=== PATIENT | female | born 1970 | race Caucasian/White ===

== ENCOUNTER 2016-11-11 10:07 | Emergency (ER) | payer OTHER ==
[~2016-11-11] VITALS: Ht 167.6 cm; Wt 100.0 kg
[~2016-11-11 10:07] MED LIST: BACTRIM DS1 TAB PO; LORTAB 10 PO; MEDDOSEPAK PO; NAPROSYN500 MG PO; NO; NO HOME MEDS; ULTRAM50 MG OR; ULTRAM50 MG PO; ZITHROMAX250 MG OR; ZITHROMAX250 MG PO
[2016-11-11 10:30] LABS: URINE BILIRUBIN - DIPSTICK NEGATIVE (NEGATIVE); URINE BLOOD DIPSTICK NEGATIVE (NEGATIVE); URINE CLARITY CLEAR; URINE COLOR YELLOW; URINE GLUCOSE - DIPSTICK NEGATIVE (NEGATIVE); URINE KETONE NEGATIVE (NEGATIVE); URINE LEUK ESTERASE NEGATIVE (NEGATIVE); URINE NITRITE - DIPSTICK NEGATIVE (Negative); URINE PROTEIN - DIPSTICK NEGATIVE (NEG-TRACE); URINE SPECIFIC GRAVITY 1.025; URINE UROBILINOGEN - DIPSTICK 0.2 E.U./dL (0.2)
[2016-11-11] MEDS ORDERED: FLEXERIL PO (12:12)
[2016-11-11] MEDS ORDERED: PERCOCET 5/325M1 TAB PO (12:12)
[2016-11-11 12:29] VITALS: BP 136/86
== END 2016-11-11 12:29 | disposition home or self-care (01) | DRG 563 ==
LOC: ED 10:07
PROVIDERS: Emergency Medicine
DX: S39.012A Strain of muscle, fascia and tendon of lower back, initial encounter (principal); M54.30 Sciatica, unspecified side; X58.XXXA Exposure to other specified factors, initial encounter

== ENCOUNTER 2017-03-23 08:08 | Emergency (ER) | payer OTHER ==
[~2017-03-23] VITALS: Ht 167.6 cm; Wt 120.0 kg
[~2017-03-23 08:08] MED LIST changes: +FLEXERIL PO; +PERCOCET 5/325M1 TAB PO
[2017-03-23] MEDS ORDERED: MOTRIN800 MG PO (09:26)
[2017-03-23 09:31] VITALS: BP 129/66
== END 2017-03-23 09:31 | disposition home or self-care (01) | DRG 563 ==
LOC: ED 08:08
DX: S56.911A Strain of unspecified muscles, fascia and tendons at forearm level, right arm, initial encounter (principal); X50.3XXA Overexertion from repetitive movements, initial encounter

== ENCOUNTER 2017-05-09 07:49 | Emergency (ER) | payer SELFPAY ==
[~2017-05-09] VITALS: Ht 167.6 cm; Wt 110.0 kg
[~2017-05-09 07:49] MED LIST changes: +MOTRIN800 MG PO
[2017-05-09] MEDS ORDERED: TRAMADOL HYDROC50 MG PO (08:16)
[2017-05-09] MEDS ORDERED: MOTRIN800 MG PO (08:16)
[2017-05-09 08:21] VITALS: BP 128/88
== END 2017-05-09 08:30 | disposition home or self-care (01) | DRG 556 ==
LOC: ED 07:49
DX: M25.561 Pain in right knee (principal); M17.11 Unilateral primary osteoarthritis, right knee; M25.461 Effusion, right knee

== ENCOUNTER 2017-11-10 08:08 | Emergency (ER) | payer MEDICAID ==
[~2017-11-10] VITALS: Ht 167.6 cm; Wt 135.3 kg
[~2017-11-10 08:08] MED LIST changes: +TRAMADOL HYDROC50 MG PO
[2017-11-10 08:44] LABS: HEMATOCRIT 43.8 % (37.0-47.0); HEMOGLOBIN 14.4 g/dl (12.0-16.0); IMMATURE GRANULOCYTES 0.5 % (0.0-1.0); MEAN CELL VOLUME 91.4 fL CALC (80.0-100.0); MEAN CORPUSCULAR HGB 30.1 pG CALC (26.0-32.0); MEAN CORPUSCULAR HGB CONC 32.9 g/L CALC (32.0-36.0); NEUT# 5.61 thou/uL (2.00-7.15); RED BLOOD COUNT 4.79 mill/uL (4.20-5.60); RED CELL DISTRI WIDTH 13.2 % (11.5-15.5)
[2017-11-10 08:48] LABS: URINE BILIRUBIN - DIPSTICK NEGATIVE (NEGATIVE); URINE BLOOD DIPSTICK NEGATIVE (NEGATIVE); URINE COLOR YELLOW; URINE GLUCOSE - DIPSTICK NEGATIVE (NEGATIVE); URINE KETONE NEGATIVE (NEGATIVE); URINE LEUK ESTERASE NEGATIVE (NEGATIVE); URINE NITRITE - DIPSTICK NEGATIVE (Negative); URINE PROTEIN - DIPSTICK NEGATIVE (NEG-TRACE); URINE UROBILINOGEN - DIPSTICK 0.2 E.U./dL (0.2)
[2017-11-10 09:02] LABS: ALBUMIN 3.9 g/dL (3.2-5.0); ALKALINE PHOSPHATASE 88 u/l (38-126); ANION GAP 15 (6-22 (CALC)); BILIRUBIN, TOTAL 0.5 mg/dL (0.0-1.4); BUN 11 mg/dL (7-17); BUN/CREATININE RATIO 14 (12-20 (CALC)); CARBON DIOXIDE 26 mmol/l (22-30); CHLORIDE 104 mmol/l (95-108); CREATININE 0.8 mg/dL (0.5-1.0); GFR > 60 ML/MIN (>=60 (CALC)); GFR FOR AFR.AMER. > 60 ML/MIN (>=60 (CALC)); POTASSIUM 3.7 mmol/l (3.5-5.1); SGOT/AST 43 u/l (14-36); SGPT/ALT 62 u/l (9-52); SODIUM 141 mmol/l (137-146); TOTAL PROTEIN 7.4 g/dL (6.3-8.2)
[2017-11-10 09:13] LABS: MYOGLOBIN 41 ng/mL (0 - 62)
[2017-11-10] MEDS ORDERED: HYDROCHLOROTH12.5 MG PO (09:43)
[2017-11-10] MEDS ORDERED: OXYBUTYNIN5 M1 PO (09:43)
[2017-11-10] MEDS ORDERED: LISINOPRIL2.5 MG PO (09:44)
[2017-11-10] MEDS ORDERED: TOPIRAMATE25 MG PO (09:44)
[2017-11-10] MEDS ORDERED: METFORMIN500 MG PO (09:44)
[2017-11-10 10:12] LABS: URINE CLARITY CLEAR
[2017-11-10 10:47] VITALS: BP 144/58
== END 2017-11-10 11:03 | disposition home or self-care (01) | DRG 103 ==
LOC: ED 08:08
PROVIDERS: Emergency Medicine
DX: R51 Headache (principal); R42 Dizziness and giddiness; E11.9 Type 2 diabetes mellitus without complications; I10 Essential (primary) hypertension

== ENCOUNTER 2018-06-07 17:13 | Emergency (ER) | payer SELFPAY ==
[~2018-06-07] VITALS: Ht 167.6 cm; Wt 95.0 kg
[~2018-06-07 17:13] MED LIST changes: +HYDROCHLOROTH12.5 MG PO; +LISINOPRIL2.5 MG PO; +METFORMIN500 MG PO; +OXYBUTYNIN5 M1 PO; +TOPIRAMATE25 MG PO
[2018-06-07] MEDS ORDERED: (None)3.5 GM OU (19:30)
[2018-06-07] MEDS ORDERED: GENTAMICIN15 ML/BTL OU (19:30)
[2018-06-07 19:31] VITALS: BP 155/78
== END 2018-06-07 19:35 | disposition home or self-care (01) | DRG 125 ==
LOC: ED 17:13
DX: H10.9 Unspecified conjunctivitis (principal); I10 Essential (primary) hypertension; E11.9 Type 2 diabetes mellitus without complications

== ENCOUNTER 2018-08-20 07:58 | Emergency (ER) | payer SELFPAY ==
[~2018-08-20] VITALS: Ht 167.6 cm; Wt 131.4 kg
[~2018-08-20 07:58] MED LIST changes: +(None)3.5 GM OU; +GENTAMICIN15 ML/BTL OU
[2018-08-20] MEDS ORDERED: ADVAIR DISK1 IN (08:12)
[2018-08-20] MEDS ORDERED: FLOVENT HF220 MCG/AC IN (08:12)
[2018-08-20] MEDS ORDERED: CEPHALEXIN500 M1 PO (09:22)
[2018-08-20] MEDS ORDERED: ROBITUSSIN AC10 ML PO (09:22)
[2018-08-20] MEDS ORDERED: FLONASE AL50 MCG/ACT (09:24)
[2018-08-20 09:27] VITALS: BP 127/66
== END 2018-08-20 09:33 | disposition home or self-care (01) | DRG 153 ==
LOC: ED 07:58
DX: J06.9 Acute upper respiratory infection, unspecified (principal); J32.9 Chronic sinusitis, unspecified; I10 Essential (primary) hypertension; E11.9 Type 2 diabetes mellitus without complications; J45.909 Unspecified asthma, uncomplicated

== ENCOUNTER 2020-12-12 23:23 | Emergency (ER) | payer BC ==
[~2020-12-12] VITALS: Ht 167.6 cm; Wt 114.0 kg
[~2020-12-12 23:23] MED LIST changes: +ADVAIR DISK1 IN; +CEPHALEXIN500 M1 PO; +FLONASE AL50 MCG/ACT; +FLOVENT HF220 MCG/AC IN; +ROBITUSSIN AC10 ML PO
[2020-12-13 00:38] LABS: URINE BILIRUBIN - DIPSTICK NEGATIVE (NEGATIVE); URINE BLOOD DIPSTICK NEGATIVE (NEGATIVE); URINE COLOR YELLOW; URINE GLUCOSE - DIPSTICK >=1000 mg/dL (NEGATIVE); URINE KETONE NEGATIVE (NEGATIVE); URINE LEUK ESTERASE NEGATIVE (NEGATIVE); URINE PROTEIN - DIPSTICK NEGATIVE (NEG-TRACE); URINE SPECIFIC GRAVITY 1.015; URINE UROBILINOGEN - DIPSTICK 0.2 E.U./dL (0.2)
[2020-12-13 00:40] LABS: HEMATOCRIT 43.1 % (37.0-47.0); HEMOGLOBIN 14.7 g/dl (12.0-16.0); IMMATURE GRANULOCYTES 0.1 % (0.0-5.0); MEAN CELL VOLUME 87.6 fL CALC (80.0-100.0); MEAN CORPUSCULAR HGB 29.9 pG CALC (26.0-32.0); MEAN CORPUSCULAR HGB CONC 34.1 g/dL CAL (32.0-36.0); NEUT# 4.24 thou/uL (2.00-7.15); RED BLOOD COUNT 4.92 mill/uL (4.20-5.60); RED CELL DISTRI WIDTH 12.5 % (11.5-15.5)
[2020-12-13 00:41] LABS: URINE NITRITE - DIPSTICK NEGATIVE (Negative)
[2020-12-13 00:50] LABS: ALBUMIN 4.1 g/dL (3.2-5.0); AMYLASE 53 u/l (30-110); ANION GAP 14 (6-22 (CALC)); BILIRUBIN, TOTAL 0.5 mg/dL (0.0-1.4); BUN 10 mg/dL (7-17); BUN/CREATININE RATIO 14 (12-20 (CALC)); CARBON DIOXIDE 25 mmol/l (22-30); CHLORIDE 101 mmol/l (95-108); CREATININE 0.7 mg/dL (0.5-1.0); GFR > 60 ML/MIN (>=60 (CALC)); GFR FOR AFR.AMER. > 60 ML/MIN (>=60 (CALC)); LIPASE 197 u/l (23-300); POTASSIUM 4.1 mmol/l (3.5-5.1); SODIUM 135 mmol/l (137-146); TOTAL PROTEIN 7.4 g/dL (6.3-8.2)
[2020-12-13 00:54] LABS: ALKALINE PHOSPHATASE 205 u/l (38-126); SGOT/AST 90 u/l (14-36)
[2020-12-13 01:02] LABS: MYOGLOBIN 16 ng/mL (0 - 62)
[2020-12-13] MEDS ORDERED: PROTONIX40 MG PO (01:15)
[2020-12-13 01:25] VITALS: BP 130/64
== END 2020-12-13 01:25 | disposition home or self-care (01) | DRG 392 ==
LOC: ED 23:23
PROVIDERS: Family Medicine
DX: K29.70 Gastritis, unspecified, without bleeding (principal); T39.395A Adverse effect of other nonsteroidal anti-inflammatory drugs [NSAID], initial encounter; E11.65 Type 2 diabetes mellitus with hyperglycemia; I10 Essential (primary) hypertension; J45.909 Unspecified asthma, uncomplicated
CPT/HCPCS: S0164

== ENCOUNTER → 2022-04-11 | Emergency (ER) | payer BC ==
[~2022-04-11] VITALS: Ht 167.6 cm; Wt 113.6 kg
[2022-04-11] VITALS (7 sets, daily range): BP systolic 107–147; BP diastolic 79–93
[~2022-04-11] MED LIST changes: +LANTUS100 UNIT SC; +PROTONIX40 MG PO; +ZOFRAN4 MG/TAB PO
[2022-04-11 11:22] LABS: HEMATOCRIT 44.3 % (37.0-47.0); HEMOGLOBIN 14.5 g/dl (12.0-16.0); IMMATURE GRANULOCYTES 0.4 % (0.0-5.0); MEAN CORPUSCULAR HGB 29.5 pG CALC (26.0-32.0); MEAN CORPUSCULAR HGB CONC 32.7 g/dL CAL (32.0-36.0); NEUT# 6.91 thou/uL (2.00-7.15); RED BLOOD COUNT 4.92 mill/uL (4.20-5.60); RED CELL DISTRI WIDTH 12.5 % (11.5-15.5)
[2022-04-11 11:42] LABS: ALBUMIN 3.9 g/dL (3.2-5.0); ALKALINE PHOSPHATASE 176 u/l (38-126); ANION GAP 14 (6-22 (CALC)); BUN 11 mg/dL (7-17); BUN/CREATININE RATIO 21 (12-20 (CALC)); CARBON DIOXIDE 23 mmol/l (22-30); CHLORIDE 105 mmol/l (95-108); CREATININE 0.5 mg/dL (0.5-1.0); GFR FOR AFR.AMER. > 60 ML/MIN (>=60 (CALC)); GFR OTHER RACES > 60 ML/MIN (>=60 (CALC)); LIPASE 138 u/l (23-300); POTASSIUM 4.1 mmol/l (3.5-5.1); SGOT/AST 146 u/l (14-36); SODIUM 137 mmol/l (137-146); TOTAL PROTEIN 6.9 g/dL (6.3-8.2)
[2022-04-11 11:53] LABS: BILIRUBIN, TOTAL 0.9 mg/dL (0.0-1.4)
[2022-04-11 14:24] LABS: URINE BILIRUBIN - DIPSTICK NEGATIVE (NEGATIVE); URINE BLOOD DIPSTICK NEGATIVE (NEGATIVE); URINE COLOR YELLOW; URINE GLUCOSE - DIPSTICK 500 mg/dL (NEGATIVE); URINE KETONE NEGATIVE (NEGATIVE); URINE LEUK ESTERASE NEGATIVE (NEGATIVE); URINE PROTEIN - DIPSTICK NEGATIVE (NEG-TRACE); URINE UROBILINOGEN - DIPSTICK 0.2 E.U./dL (0.2)
[2022-04-11 14:27] LABS: URINE NITRITE - DIPSTICK NEGATIVE (Negative)
== END | disposition home or self-care (01) | DRG 392 ==
LOC: ED 10:43
PROVIDERS: Family Medicine
DX: R10.13 Epigastric pain (principal); E11.9 Type 2 diabetes mellitus without complications; I10 Essential (primary) hypertension
CPT/HCPCS: Q9967

== ENCOUNTER 2022-09-12 02:17 | Emergency (ER) | payer BC ==
[~2022-09-12] VITALS: Ht 167.6 cm; Wt 113.0 kg
[2022-09-12 02:28] VITALS: BP 141/75
[2022-09-12 02:31] VITALS: BP 111/64
[2022-09-12] MEDS ORDERED: OZEMPIC2 MG SC (02:42)
[2022-09-12 03:01] VITALS: BP 116/56
[2022-09-12 03:01] LABS: BASO% 0.3 % (0-3); EOS% 1.1 % (0-8); HEMATOCRIT 44.5 % (37.0-47.0); HEMOGLOBIN 14.2 g/dl (12.0-16.0); IMMATURE GRANULOCYTES 0.4 % (0.0-5.0); LYMPH% 34.6 % (15-41); MEAN CELL VOLUME 89.7 fL CALC (80.0-100.0); MEAN CORPUSCULAR HGB 28.6 pG CALC (26.0-32.0); MEAN CORPUSCULAR HGB CONC 31.9 g/dL CAL (32.0-36.0); MONO% 5.7 % (2-13); NEUT# 6.17 thou/uL (2.00-7.15); NEUT% 57.9 % (42-76); RED BLOOD COUNT 4.96 mill/uL (4.20-5.60); RED CELL DISTRI WIDTH 12.8 % (11.5-15.5)
[2022-09-12 03:30] VITALS: BP 108/60
[2022-09-12 03:33] LABS: ALBUMIN 3.9 g/dL (3.2-5.0); ALKALINE PHOSPHATASE 117 u/l (38-126); BUN 12 mg/dL (7-17); BUN/CREATININE RATIO 19 (12-20 (CALC)); CARBON DIOXIDE 26 mmol/l (22-30); CHLORIDE 106 mmol/l (95-108); CREATININE 0.6 mg/dL (0.5-1.0); GFR FOR AFR.AMER. > 60 ML/MIN (>=60 (CALC)); GFR OTHER RACES > 60 ML/MIN (>=60 (CALC)); SODIUM 139 mmol/l (137-146); TOTAL PROTEIN 7.2 g/dL (6.3-8.2)
[2022-09-12 03:35] LABS: ANION GAP 11 (6-22 (CALC)); BILIRUBIN, TOTAL 0.4 mg/dL (0.02-1.3); POTASSIUM 3.8 mmol/l (3.5-5.1); SGOT/AST 34 u/l (14-36)
[2022-09-12 04:31] LABS: URINE BILIRUBIN - DIPSTICK NEGATIVE (NEGATIVE); URINE BLOOD DIPSTICK NEGATIVE (NEGATIVE); URINE COLOR YELLOW; URINE GLUCOSE - DIPSTICK NEGATIVE (NEGATIVE); URINE KETONE NEGATIVE (NEGATIVE); URINE LEUK ESTERASE NEGATIVE (NEGATIVE); URINE NITRITE - DIPSTICK NEGATIVE (Negative); URINE PH 5.5 (4.5-8.0); URINE PROTEIN - DIPSTICK NEGATIVE (NEG-TRACE); URINE SPECIFIC GRAVITY 1.025; URINE UROBILINOGEN - DIPSTICK 0.2 E.U./dL (0.2)
[2022-09-12 06:02] VITALS: BP 108/60
[2022-09-12] MEDS ORDERED: ULTRAM50 MG PO (06:03)
[2022-09-12] MEDS ORDERED: NAPROXEN500 MG PO (06:03)
== END 2022-09-12 06:09 | disposition home or self-care (01) | DRG 554 ==
LOC: ED 02:17
PROVIDERS: Emergency Medicine
DX: M16.12 Unilateral primary osteoarthritis, left hip (principal)
CPT/HCPCS: Q9967

== ENCOUNTER 2023-03-14 20:35 | Emergency (ER) | payer BC ==
[~2023-03-14] VITALS: Ht 167.6 cm; Wt 115.0 kg
[~2023-03-14 20:35] MED LIST changes: +NAPROXEN500 MG PO; +OZEMPIC2 MG SC
[2023-03-14 23:15] VITALS: BP 104/85
[2023-03-14 23:30] VITALS: BP 99/52
[2023-03-14 23:45] VITALS: BP 86/49
[2023-03-15] VITALS (11 sets, daily range): BP systolic 90–126; BP diastolic 53–82
== END 2023-03-15 02:49 | disposition home or self-care (01) | DRG 605 ==
LOC: ED 20:35
DX: S80.01XA Contusion of right knee, initial encounter (principal); M17.11 Unilateral primary osteoarthritis, right knee; I10 Essential (primary) hypertension; E11.9 Type 2 diabetes mellitus without complications; J45.909 Unspecified asthma, uncomplicated; W10.9XXA Fall (on) (from) unspecified stairs and steps, initial encounter; Z79.4 Long term (current) use of insulin; Z98.890 Other specified postprocedural states